=== PATIENT | male | born 1940 | race Caucasian/White ===

== ENCOUNTER 2016-06-17 17:16 | Emergency (ER) | payer MEDICARE, OTHER ==
[2016-06-17] MEDS ORDERED: Sodium Chloride 0.9% 10 ML Syringe FLUSH PRN (17:29)
[2016-06-17] MEDS ORDERED: Sodium Chloride 0.9% 2.5 ML Syringe FLUSH PRN (17:29)
--- NOTE | 2016-06-17 17:37 | EDM.PDOC ---
ED HISTORY OF PRESENT ILLNESS - General Chief Complaint: Respiratory Problem Stated Complaint: SHORTNESS OF BREATH Time Seen by Provider: 06/17/16 17:32 Source of Information: Reports: Patient History Limitations: Reports: No limitations - History of Present Illness INITIAL COMMENTS - FREE TEXT/NARRATIVE: HISTORY AND PHYSICAL: [75-year-old male presenting with shortness of breath ] History of Present Illness: [recently had his teeth removed and dentures placed he has difficulty breathing through his nose. He gets up in the middle of the night 3 or 4 times to the bathroom so he takes a deep breath through his mouth and his daughter and are worried about his shortness of breath. he denies any pain.] patient is a paced rhythm 2 open heart surgeries Review of Systems: As per history of present illness and below otherwise all systems reviewed and negative. Past medical history: As per history of present illness and as reviewed below otherwise noncontributory. Surgical history: As per history of present illness and as reviewed below otherwise noncontributory. Social history: No reported history of drug or alcohol abuse. Family history: As per history of present illness and as reviewed below otherwise noncontributory. Physical exam:alert and oriented gentleman during questions appropriately very neatly dressed HEENT: Atraumatic, normocehpalic, pupils reactive, negative for conjunctival pallor or scleral icterus, mucous membranes moist, throat clear, neck supple, nontender, trachea midline. Lungs: Clear to auscultation, breath sounds equal bilaterally, chest non tender. Heart: S1S2, regular, negative for clicks, rubs, or JVD. Abdomen: Soft, nondistended, nontender. Negative for masses or hepatossplenmegaly. Negative for costovertebral tenderness. Extremities: Atraumatic, negative for cords or calf pain. Neurovascular unremarkable. Neuro: Awake, alert, oriented. Cranial nerves II through XII unremarkable. Cerebellum unremarkable. Motor and sensory unremarkable throughout. Exam nonfocal. Diagnostics: CBC CMP troponin chestx ray] Therapeutics: [] Impression: shortness of breath with exertion] Plan: [home Take your time while you are moving Order for a carotid Doppler has been sent to radiology, please call in the morning [phone] schedule this appointment Reports from this will be sent to Dr. Elias Brown Followup with Dr. Brown next week ] Definitive disposition and diagnosis as appropriate pending reevaluation and review of above. Timing/Duration: Reports: Day(s): Severity: mild Location, General: Reports: chest Quality: Reports: Same as previous episode Improves with: Reports: None Worsens with: Reports: Movement Associated Symptoms (General): Reports: no other symptoms - Related Data Allergies/ADRs: Allergies Allergy/AdvReac Type Severity Reaction Status Date / Time Penicillins Allergy Rash Verified 06/17/16 17:22 Home Meds: Home Meds Ascorbate Calcium [Vitamin C] 500 mg PO DAILY 03/14/14 [History] Cholecalciferol (Vitamin D3) [Vitamin D3] 1,000 units PO DAILY 03/14/14 [History ] Fish Oil/[place]-3 Fatty Acids [Fish Oil 1,000 MG] 1,000 mg PO DAILY 03/14/14 [ History] Potassium Chloride 20 meq PO DAILY 03/14/14 [History] Vitamin B Complex 1 tab PO DAILY 03/14/14 [History] Vitamin E 400 units PO DAILY 03/14/14 [History] Allopurinol [Zyloprim] 100 mg PO DAILY 06/17/16 [History] Aspirin 81 mg PO DAILY 06/17/16 [History] Carvedilol 1 tab PO BID 06/17/16 [History] Losartan/Hydrochlorothiazide [Losartan-HCTZ 100-12.5 MG] 1 tab PO DAILY [History] Tamsulosin HCl 1 tab PO DAILY 06/17/16 [History] atorvaSTATin Calcium [Atorvastatin Calcium] 10 mg PO DAILY 06/17/16 [History] Past Medical History Cardiovascular History: Reports: High cholesterol, Hypertension, Pacemaker - Past Surgical History Cardiovascular Surgical History: Reports: Coronary artery bypass, Coronary artery stent, Pacer Social & Family History - Family History Family Medical History: Noncontributory - Tobacco Use Smoking Status *Q: Never Smoker Second Hand Smoke Exposure: No - Caffeine Use Caffeine Use: Reports: Coffee Caffeine Use Comment: 6 cup a daily - Alcohol Use Days Per Week of Alcohol Use: 0 - Recreational Drug Use Recreational Drug Use: No Drug Use in Last 12 Months: No ED ROS GENERAL - Review of Systems Review Of Systems: ROS reveals no pertinent complaints other than HPI. ED EXAM, GENERAL - Physical Exam Exam: See Below (see dictation) Course - Vital Signs Last Recorded V/S: Last Vital Signs Temp 36.8 C 06/17/16 17:23 Pulse 70 05/08/17 17:23 Resp 18 06/17/16 17:23 BP 145/69 H 06/17/16 17:23 Pulse Ox 96 06/17/16 17:23 - Orders/Labs/Meds Orders: Active Orders 24 hr Category Date Time Status EKG Documentation Completion [RC] STAT Care 06/17/16 17:29 Active Chest 1V Frontal [CR] Stat Exams 06/17/16 17:30 Taken Sodium Chloride 0.9% [Saline Flush] Med 06/17/16 17:29 Active 10 ml FLUSH ASDIRECTED PRN Sodium Chloride 0.9% [Saline Flush] Med 06/17/16 17:29 Active 2.5 ml FLUSH ASDIRECTED PRN Saline Lock Insert [OM.PC] Stat Oth 06/17/16 17:29 Ordered Medication Orders Sodium Chloride (Saline Flush) 10 ml FLUSH ASDIRECTED PRN PRN Reason: Keep Vein Open Sodium Chloride (Saline Flush) 2.5 ml FLUSH ASDIRECTED PRN PRN Reason: Keep Vein Open Labs: Laboratory Tests 06/17/16 06/17/16 06/17/16 Range/Units 17:50 17:50 17:50 WBC 8.40 (4.0-11.0) K/uL RBC 4.20 L (4.50-5.90) M/uL Hgb 13.0 (13.0-17.0) g/dL Hct 37.6 L (38.0-50.0) % MCV 89.5 (80.0-98.0) fL MCH 31.0 (27.0-32.0) pg MCHC 34.6 (31.0-37.0) g/dL RDW Std Deviation 43.1 (28.0-62.0) fl RDW Coeff of James 13 (11.0-15.0) % Plt Count 159 (150-400) K/uL MPV 9.60 (7.40-12.00) fL Neut % (Auto) 53.2 (48.0-80.0) % Lymph % (Auto) 31.7 (16.0-40.0) % Graves % (Auto) 12.0 (0.0-15.0) % Eos % (Auto) 2.7 (0.0-7.0) % Baso % (Auto) 0.4 (0.0-1.5) % Neut # (Auto) 4.5 (1.4-5.7) K/uL Lymph # (Auto) 2.7 H (0.6-2.4) K/uL Graves # (Auto) 1.0 H (0.0-0.8) K/uL Eos # (Auto) 0.2 (0.0-0.7) K/uL Baso # (Auto) 0.0 (0.0-0.1) K/uL Nucleated RBC % 0.0 /100WBC Nucleated RBCs # 0 K/uL Sodium 140 (136-146) mmol/L Potassium 3.8 (3.5-5.1) mmol/L Chloride 107 (98-110) mmol/L Carbon Dioxide 23 (21-31) mmol/L BUN 29 H (6.0-23.0) mg/dL Creatinine 1.7 H (0.6-1.5) mg/dL Est Cr Clr Drug Dosing 32.84 mL/min Estimated GFR (MDRD) 39.3 ml/min Glucose 103 (60-110) mg/dL Calcium 9.5 (8.8-10.8) mg/dL Total Bilirubin 0.6 (0.1-1.5) mg/dL AST 21 (5-40) IU/L ALT 21 (8-54) IU/L Alkaline Phosphatase 63 (40-150) Troponin I < 0.10 (0.0-0.29) NG/ML Total Protein 7.4 (6.0-8.0) g/dL Albumin 3.9 (3.4-4.8) g/dL Globulin 3.5 (2.0-3.5) g/dL Albumin/Globulin Ratio 1.1 L (1.3-2.8) Meds: Medications Generic Name Dose Route Start Last Admin Trade Name Freq PRN Reason Stop Dose Admin Sodium Chloride 10 ml 06/17/16 17:29 Saline Flush FLUSH ASDIRECTED PRN Keep Vein Open Sodium Chloride 2.5 ml 06/17/16 17:29 Saline Flush FLUSH ASDIRECTED PRN Keep Vein Open Departure - Departure Time of Disposition: 19:27 Disposition: Home, Self-Care 01 Condition: good Clinical Impression: Shortness of breath on exertion Forms: ED Department Discharge Additional Instructions: The following information is given to patients seen in the emergency department who are being discharged to home. This information is to outline your options for follow-up care. We provide all patients seen in our emergency department with a follow-up referral. The need for follow-up, as well as the timing and circumstances, are variable depending upon the specifics of your emergency department visit. If you don't have a primary care physician on staff, we will provide you with a referral. We always advise you to contact your personal physician following an emergency department visit to inform them of the circumstance of the visit and for follow-up with them and/or the need for any referrals to a consulting specialist. The emergency department will also refer you to a specialist when appropriate. This referral assures that you have the opportunity for followup care with a specialist. All of these measure are taken in an effort to provide you with optimal care, which includes your followup. Under all circumstances we always encourage you to contact your private physician who remains a resource for coordinating your care. When calling for followup care, please make the office aware that this follow-up is from your recent emergency room visit. If for any reason you are refused follow-up, please contact the [facility] emergency department at and asked to speak to the emergency department charge nurse. Follow up with Dr. Brown in one week call to schedule your appointment with radiology [phone] - My Orders Last 24 Hours: My Active Orders 06/17/16 17:29 EKG Documentation Completion [RC] STAT Sodium Chloride 0.9% [Saline Flush] 10 ml FLUSH ASDIRECTED PRN Sodium Chloride 0.9% [Saline Flush] 2.5 ml FLUSH ASDIRECTED PRN Saline Lock Insert [OM.PC] Stat 06/17/16 17:30 Chest 1V Frontal [CR] Stat - Assessment/Plan Last 24 Hours: My Active Orders 06/17/16 17:29 EKG Documentation Completion [RC] STAT Sodium Chloride 0.9% [Saline Flush] 10 ml FLUSH ASDIRECTED PRN Sodium Chloride 0.9% [Saline Flush] 2.5 ml FLUSH ASDIRECTED PRN Saline Lock Insert [OM.PC] Stat 06/17/16 17:30 Chest 1V Frontal [CR] Stat
[2016-06-17 19:43] VITALS: BP 174/81
--- NOTE | 2016-06-18 12:25 | CR ---
EXAM DATE: 06/17/16 PATIENT'S AGE: 75 Patient: OSIRIS MAHAJAN Facility: [place], [place] Site . Site : 1940 Study: XRay Chest [id number]/8/2017 6:39:06 PM Ordering Physician: Doctor Denson Final Report: INDICATION: Shortness of breath TECHNIQUE: Chest radiograph 1 view COMPARISON: 12/04/2011. FINDINGS: Interval placement of left subclavian pacemaker leads from prior study. Cardiac silhouette remains enlarged with stable heart and mediastinal contours. Costophrenic sulci remain clear. No pneumothorax. Lung markings unchanged. IMPRESSION: 1. Mild cardiomegaly status post prior median sternotomy, similar to prior study. No congestive heart failure pattern or other acute abnormality. Dictated by Hoang Villanueva MD @ 06/17/2016 7:20:23 PM Dictated by: Hoang Villanueva MD @ 06/17/2016 19:20:29 (Electronic Signature) Report Signed by Proxy. BRYANT
== END 2016-06-17 19:32 | disposition home or self-care (01) ==
LOC: MW.ED 17:16
DX: R06.02 Shortness of breath (principal); I10 Essential (primary) hypertension; E78.00 Pure hypercholesterolemia, unspecified; Z88.0 Allergy status to penicillin; Z95.1 Presence of aortocoronary bypass graft
CPT/HCPCS: 36415; 71010; 71010-26; 80053; 84484; 85025; 93005; 99283; 99285-25

== ENCOUNTER → 2016-06-19 | Outpatient (CLI) | payer MEDICARE, OTHER ==
--- NOTE | 2016-06-19 15:51 | US ---
EXAMINATION: Carotid US with scott scale and duplex imaging. HISTORY: Dizziness FINDINGS: Ultrasound examination of bilateral cervical carotid arteries was performed using scott scale and dup tomas imaging. Minimal scattered atheromatous plaque identified. Antegrade flow is noted within the vertebrals. These are the peak velocities in cm per second (systole), right and left respectively, by a comma: CCA (common carotid artery) - 92, 76 ICA (internal carotid artery) - 103, 88 ECA (External carotid artery) - 79, 65 ICA/CCA systolic ratio Right - 1.0 Left - 1.7 IMPRESSION: 1. Mild scattered atheromatous plaque without elevated velocities to suggest greater than 50% stenos is.
== END ==
LOC: MW.US 14:36
PROVIDERS: ATTEND Nurse Practitioner
DX: R42 Dizziness and giddiness (principal)
CPT/HCPCS: 93880; 93880-26

== ENCOUNTER 2016-08-14 11:36 | Emergency (ER) | payer MEDICARE, OTHER ==
--- NOTE | 2016-08-14 11:49 | EDM.PDOC ---
ED HPI GENERAL MEDICAL PROBLEM - General Chief Complaint: Chest Pain Stated Complaint: CHEST PAIN Time Seen by Provider: 08/14/16 11:45 - History of Present Illness INITIAL COMMENTS - FREE TEXT/NARRATIVE: HISTORY AND PHYSICAL: History of present illness: Patient 75-year-old male with history of cardiac pacemaker was sent here by another physician's office when he was therefore a visit with his he reached over to [place] and had a sharp several second episode of chest pain without associated shortness of breath palpitations diaphoresis nausea or vomiting he is asymptomatic on arrival here and states this literally lasted several seconds. Review of systems: As per history of present illness and below otherwise all systems reviewed and negative. Past medical history: As per history of present illness and as reviewed below otherwise noncontributory. Surgical history: As per history of present illness and as reviewed below otherwise noncontributory. Social history: No reported history of drug or alcohol abuse. Family history: As per history of present illness and as reviewed below otherwise noncontributory. Physical exam: HEENT: Atraumatic, normocephalic, pupils reactive, negative for conjunctival pallor or scleral icterus, mucous membranes moist, throat clear, neck supple, nontender, trachea midline. Lungs: Clear to auscultation, breath sounds equal bilaterally, chest nontender. Heart: S1S2, regular, negative for clicks, rubs, or JVD. Abdomen: Soft, nondistended, nontender. Negative for masses or hepatosplenomegaly. Negative for costovertebral tenderness. Pelvis: Stable nontender. Genitourinary: Deferred. Rectal: Deferred. Extremities: Atraumatic, negative for cords or calf pain. Neurovascular unremarkable. Neuro: Awake, alert, oriented. Cranial nerves II through XII unremarkable. Cerebellum unremarkable. Motor and sensory unremarkable throughout. Exam nonfocal. Diagnostics: EKG CBC CMP troponin chest x-ray Therapeutics: None Impression: #1 atypical chest pain #2 history of pacemaker Definitive disposition and diagnosis as appropriate pending reevaluation and review of above. - Related Data Allergies Allergy/AdvReac Type Severity Reaction Status Date / Time Penicillins Allergy Rash Verified 08/14/16 11:47 Home Meds: Home Meds Ascorbate Calcium [Vitamin C] 500 mg PO DAILY 03/14/14 [History] Cholecalciferol (Vitamin D3) [Vitamin D3] 1,000 units PO DAILY 03/14/14 [History ] Fish Oil/[place]-3 Fatty Acids [Fish Oil 1,000 MG] 1,000 mg PO DAILY 03/14/14 [ History] Potassium Chloride 20 meq PO DAILY 03/14/14 [History] Vitamin B Complex 1 tab PO DAILY 03/14/14 [History] Vitamin E 400 units PO DAILY 03/14/14 [History] Allopurinol [Zyloprim] 100 mg PO DAILY 06/17/16 [History] Aspirin 81 mg PO DAILY 06/17/16 [History] Carvedilol 1 tab PO BID 06/17/16 [History] Losartan/Hydrochlorothiazide [Losartan-HCTZ 100-12.5 MG] 1 tab PO DAILY [History] Tamsulosin HCl 1 tab PO DAILY 06/17/16 [History] atorvaSTATin Calcium [Atorvastatin Calcium] 10 mg PO DAILY 06/17/16 [History] Past Medical History HEENT History: Reports: Impaired Vision Other HEENT History: wears glasses Cardiovascular History: Reports: High Cholesterol, Hypertension, Pacemaker Musculoskeletal History: Reports: Arthritis - Past Surgical History Cardiovascular Surgical History: Reports: Coronary Artery Bypass, Coronary Artery Stent, Pacer Social & Family History - Family History Family Medical History: Noncontributory - Tobacco Use Smoking Status *Q: Never Smoker Second Hand Smoke Exposure: No - Caffeine Use Caffeine Use: Reports: Coffee Caffeine Use Comment: 6 cup a daily - Alcohol Use Days Per Week of Alcohol Use: 0 - Recreational Drug Use Recreational Drug Use: No Drug Use in Last 12 Months: No ED ROS GENERAL - Review of Systems Review Of Systems: ROS reveals no pertinent complaints other than HPI. ED EXAM, GENERAL - Physical Exam Exam: See Below (See dictation) Course - Vital Signs Last Recorded V/S: Last Vital Signs Temp 36.1 C 08/14/16 11:48 Pulse 71 08/14/16 11:48 Resp 18 08/14/16 11:48 BP 142/69 H 08/14/16 11:48 Pulse Ox 94 L 08/14/16 11:48 - Orders/Labs/Meds Orders: Active Orders 24 hr Category Date Time Status EKG Documentation Completion [RC] STAT Care 08/14/16 11:47 Active Chest 2V [CR] Stat Exams 08/14/16 11:47 Taken COMPREHENSIVE METABOLIC PN,CMP [CHEM] Stat Lab 08/14/16 12:09 Received Labs: Laboratory Tests 08/14/16 08/14/16 Range/Units 12:09 12:09 WBC 8.79 (4.0-11.0) K/uL RBC 4.47 L (4.50-5.90) M/uL Hgb 13.9 (13.0-17.0) g/dL Hct 40.2 (38.0-50.0) % MCV 89.9 (80.0-98.0) fL MCH 31.1 (27.0-32.0) pg MCHC 34.6 (31.0-37.0) g/dL RDW Std Deviation 42.0 (28.0-62.0) fl RDW Coeff of James 13 (11.0-15.0) % Plt Count 142 L (150-400) K/uL MPV 9.80 (7.40-12.00) fL Neut % (Auto) 54.3 (48.0-80.0) % Lymph % (Auto) 28.6 (16.0-40.0) % [place] % (Auto) 12.3 (0.0-15.0) % Eos % (Auto) 4.3 (0.0-7.0) % Baso % (Auto) 0.5 (0.0-1.5) % Neut # (Auto) 4.8 (1.4-5.7) K/uL Lymph # (Auto) 2.5 H (0.6-2.4) K/uL [place] # (Auto) 1.1 H (0.0-0.8) K/uL Eos # (Auto) 0.4 (0.0-0.7) K/uL Baso # (Auto) 0.0 (0.0-0.1) K/uL Nucleated RBC % 0.0 /100WBC Nucleated RBCs # 0 K/uL Troponin I < 0.10 (0.0-0.29) NG/ML Departure - Departure Time of Disposition: 12:39 Disposition: Home, Self-Care 01 Condition: Good Clinical Impression: Atypical chest pain - Discharge Information Forms: ED Department Discharge Additional Instructions: The following information is given to patients seen in the emergency department who are being discharged to home. This information is to outline your options for follow-up care. We provide all patients seen in our emergency department with a follow-up referral. The need for follow-up, as well as the timing and circumstances, are variable depending upon the specifics of your emergency department visit. If you don't have a primary care physician on staff, we will provide you with a referral. We always advise you to contact your personal physician following an emergency department visit to inform them of the circumstance of the visit and for follow-up with them and/or the need for any referrals to a consulting specialist. The emergency department will also refer you to a specialist when appropriate. This referral assures that you have the opportunity for followup care with a specialist. All of these measure are taken in an effort to provide you with optimal care, which includes your followup. Under all circumstances we always encourage you to contact your private physician who remains a resource for coordinating your care. When calling for followup care, please make the office aware that this follow-up is from your recent emergency room visit. If for any reason you are refused follow-up, please contact the [facility] emergency department at and asked to speak to the emergency department charge nurse. Tylenol as directed follow primary medical doctor 1-2 days continue current medications return as needed as discussed - My Orders Last 24 Hours: My Active Orders 08/14/16 11:47 EKG Documentation Completion [RC] STAT Chest 2V [CR] Stat 08/14/16 12:09 COMPREHENSIVE METABOLIC PN,CMP [CHEM] Stat - Assessment/Plan Last 24 Hours: My Active Orders 08/14/16 11:47 EKG Documentation Completion [RC] STAT Chest 2V [CR] Stat 08/14/16 12:09 COMPREHENSIVE METABOLIC PN,CMP [CHEM] Stat
[2016-08-14 15:27] VITALS: BP 154/86
--- NOTE | 2016-08-14 20:10 | CR ---
EXAM DATE: 08/14/16 PATIENT'S AGE: 75 Patient: OSIRIS MAHAJAN Facility: [place], [place] Site . Site : 1940 Study: XRay Chest [id number]/5/2017 12:24:59 PM Ordering Physician: Nae Cartwright Final Report: INDICATION: Chest and ear pain. COMPARISON: 06/17/2016. FINDINGS/IMPRESSION: No acute pulmonary infiltrates or other acute intrathoracic abnormalities are demonstrated. Unchanged minimal bibasilar scarring or atelectasis. Normal heart size and pulmonary vasculature. No pleural effusions. Unchanged cardiac pacemaker/AICD. S /P sternotomy, as before. Unremarkable osseous structures. Dictated by Naman Sparrow MD @ 08/14/2016 12:31:31 PM Dictated by: Naman Sparrow MD @ 08/14/2016 12:31:58 (Electronic Signature) Report Signed by Proxy. BRYANT
== END 2016-08-14 13:27 | disposition home or self-care (01) ==
LOC: MW.ED 11:36
DX: R07.89 Other chest pain (principal); I10 Essential (primary) hypertension; E78.00 Pure hypercholesterolemia, unspecified; M19.90 Unspecified osteoarthritis, unspecified site; Z95.1 Presence of aortocoronary bypass graft; Z95.5 Presence of coronary angioplasty implant and graft; Z95.0 Presence of cardiac pacemaker; Z79.82 Long term (current) use of aspirin; Z79.899 Other long term (current) drug therapy; Z88.0 Allergy status to penicillin
CPT/HCPCS: 36415; 71020; 71020-26; 80053; 84484; 85025; 93005; 99282; 99285-25

== ENCOUNTER 2018-08-11 09:26 | Observation (INO) | payer MEDICARE, OTHER ==
[2018-08-11] MEDS ORDERED: Sodium Chloride 0.9% 10 ML Syringe FLUSH PRN (09:39)
[2018-08-11] MEDS ORDERED: Sodium Chloride 0.9% 2.5 ML Syringe FLUSH PRN (09:39)
[2018-08-11] MEDS ORDERED: Sodium Chloride 0.9% 500 ML IV SCH (09:45)
--- NOTE | 2018-08-11 09:53 | CT ---
EXAMINATION: Non contrast CT head. Coronal and sagittal reformats. HISTORY: Pain. COMPARISON: 11/06/2015. FINDINGS: No evidence of intra or extra axial hemorrhage, mass, midline shift, hydrocephalus or edema. There is mild generalized atrophy and moderate periventricular and subcortical white matter hypodensities. Tiny focus of encephalomalacia within the right occipital region. No hypoattenuation changes in the major vascular territories to suggest acute infarct. No abnormal intracranial calcifications are detected. Mild vascular calcifications. Paranasal sinuses and mastoid air cells are well aerated without substantial findings. The pituitary fossa appears unremarkable. Orbits and globes are symmetric. The calvarium is intact. No evidence of skull fracture. IMPRESSION: 1. No acute intracranial findings. 2. Mild generalized atrophy and moderate small vessel ischemic changes. The findings were called to the ER at 9:50 AM.
[2018-08-11] MEDS ORDERED: Aspirin 325 MG Tab PO ONE (09:55)
--- NOTE | 2018-08-11 09:55 | EDM.PDOC ---
ED HPI GENERAL MEDICAL PROBLEM - General Chief Complaint: Neuro Symptoms/Deficits Stated Complaint: CONFUSION Time Seen by Provider: 08/11/18 09:29 - History of Present Illness INITIAL COMMENTS - FREE TEXT/NARRATIVE: HISTORY AND PHYSICAL: History of present illness: The patient is a 77-year-old male who presents with after having acute neurologic changes that started at 9 AM, approximately 50 minutes prior to this dictation. The says that he had a completely normal morning and was acting appropriately and they were taking the car and for some servicing when he was driving the vehicle and she noticed that he was having issues controlling the gas pedal and the speed of the car and he was also wavering in the road and not staying in the [place]. When the asked him what was wrong he said to her that he was having difficulty focusing but she did not notice that his speech was slurred or altered but seemed very slowed and he was very quiet. He did complain of some pain at the right side of his neck which according to him and her has been ongoing since February and it was not new or different. She asked the patient to pull the car over and she went around the car and proceeded to try to get him out of the car but he was unable to stand. A friend who was in the area help to get him back into the car on the passenger side and at that point noticed that he was on the cell phone talking and although his speech was slowed he seemed to be speaking clearly and could understand what he was saying. The patient was brought in here and a stroke code was called in light of his symptoms. According to the computer he has a history of a TIA as well as hypertension and hypercholesterolemia. The patient was quickly evaluated by triage and brought quickly to CT scan and on my evaluation on his return from CT he is speaking clearly and easily is alert and oriented and has no focal deficits grossly. He says he has no complaints of any pain and he is not sure why exactly he is here in the ED but does admit that he did have an abnormal episode earlier. He says he has been eating and drinking normally but does have loose stools. He has no abdominal pain no nausea no vomiting no headache and no midline neck or back pain currently. He again reiterates that the pain at the left back radiates to the right side and has been ongoing since February and is not new or different. He denies any recent trauma. His initial blood pressure was noted and an IV was started by the nurse in the CT scan area and IV fluids were started immediately upon his return. Review of systems: As per history of present illness and below otherwise all systems reviewed and negative. Past medical history: As per history of present illness and as reviewed below otherwise noncontributory. Surgical history: As per history of present illness and as reviewed below otherwise noncontributory. Social history: No reported history of drug or alcohol abuse. Family history: As per history of present illness and as reviewed below otherwise noncontributory. Physical exam: General: Well-developed well-nourished man who is nontoxic and speaking clearly on my evaluation he is laughing and interactive and is nontoxic. Vital signs are noted by me. HEENT: Atraumatic, normocephalic, pupils reactive, negative for conjunctival pallor or scleral icterus, mucous membranes moist, throat clear, neck supple, nontender, trachea midline. EOMs are intact, there is no evidence of any facial swelling or facial droop. There are no midline step-offs in his defects of the cervical spine and no soft tissue injury to the neck posteriorly is appreciated. Lungs: Clear to auscultation, breath sounds equal bilaterally, chest nontender. no wheezing stridor or work of breathing Heart: S1S2, regular rate and rhythm and there is a soft systolic ejection murmur appreciated at the left sternal border Abdomen: Soft, nondistended, nontender. Negative for masses or hepatosplenomegaly. Negative for costovertebral tenderness. Pelvis: Stable nontender. Genitourinary: Deferred. Rectal: Deferred. Extremities: Atraumatic, negative for cords or calf pain. Neurovascular unremarkable. no defects deformities and full range of motion. There is no pedal edema Neuro: Awake, alert, oriented. Cranial nerves II through XII unremarkable. Cerebellum unremarkable. Motor and sensory unremarkable throughout. Exam nonfocal. patient has good costume draper 5/5 bilaterally and dorsi and plantar flexion is intact 5/5 inclusive of the great toe. She can invert any vertigo his feet and he has no focal drift appreciated on brief exam in the triage room. Diagnostics: EKG CBC CMP INR troponin TSH UA with reflex CT scan of the head chest x-ray lactic acid NIHSS Therapeutics: IV O2 monitor IV fluids aspirin NIHSS is 0 according to nursing and patient is very chatty and talkative now in the ED. tells me he has back at his baseline. His blood pressure is systolic 102 after a bolus and will give him another second small fluid bolus. We're continuing to monitor his workup This case was called as a stroke code due to the presenting symptoms and the timeframe. By the time I evaluated the patient and the stroke scale was performed he was completely asymptomatic. His symptoms had resolved within less than one hour. He currently remains asymptomatic and as his symptoms have completely resolved I do not feel that TPA is indicated. We will admit the patient here to our hospital and involve neurology as needed and indicated per our conversation with the hospitalist BUN and creatinine today is 38/2.7 and this was compared to blood work done last August which showed a BUN of 26 and a creatinine of 1.8. These tests may indicate some slight dehydration which would correlate with his mild hypotension without symptomatology on arrival. He is continuing to maintain his baseline neuro status and I will call and for admission Dr. Benitez was contacted at 11:40 AM and accepts the patient for admission. All testing results were discussed with the patient and family at bedside and the patient is agreeable for observation Impression: Episode of confusion, motor weakness and inability to stand, resolved, TIA Definitive disposition and diagnosis as appropriate pending reevaluation and review of above. - Related Data Allergies Allergy/AdvReac Type Severity Reaction Status Date / Time atenolol Allergy Cough Verified 08/11/18 10:31 lisinopril Allergy Cough Verified 08/11/18 10:31 meperidine [From Demerol] Allergy Other Verified 08/11/18 10:31 nickel Allergy Hives Verified 08/11/18 10:31 Penicillins Allergy Rash Verified 08/11/18 09:49 Home Meds: Home Meds Allopurinol [Zyloprim] 100 mg PO DAILY 06/17/16 [History] Aspirin 81 mg PO DAILY 06/17/16 [History] Carvedilol 12.5 mg PO BID 06/17/16 [History] Losartan/Hydrochlorothiazide [Losartan-HCTZ 100-12.5 MG] 1 tab PO DAILY [History] Donepezil [Aricept] 10 mg PO BEDTIME 08/11/18 [History] tiZANidine [Zanaflex] 4 mg PO TID 08/11/18 [History] Past Medical History HEENT History: Reports: Impaired Vision Other HEENT History: wears glasses Cardiovascular History: Reports: High Cholesterol, Hypertension, Pacemaker Musculoskeletal History: Reports: Arthritis - Past Surgical History Cardiovascular Surgical History: Reports: Coronary Artery Bypass, Coronary Artery Stent, Pacer Social & Family History - Family History Family Medical History: Noncontributory - Caffeine Use Caffeine Use: Reports: Coffee Caffeine Use Comment: 6 cup a daily ED ROS GENERAL - Review of Systems Review Of Systems: ROS reveals no pertinent complaints other than HPI. ED EXAM, GENERAL - Physical Exam Exam: See Below (See dictation) Course - Vital Signs Last Recorded V/S: Last Vital Signs Temp 36.0 C 08/11/18 09:46 Pulse 65 08/11/18 09:46 Resp 18 08/11/18 09:46 BP 86/55 L 08/11/18 09:46 Pulse Ox 95 08/11/18 09:46 - Orders/Labs/Meds Orders: Active Orders 24 hr Category Date Time Status Patient Status [ADT] Stat ADT 08/11/18 11:40 Ordered Blood Glucose Check, Bedside [RC] ONETIME Care 08/11/18 09:39 Active Cardiac Monitoring [RC] . DIRECTED Care 08/11/18 09:39 Active Communication Order [RC] STAT Care 08/11/18 09:40 Active EKG Documentation Completion [RC] STAT Care 08/11/18 09:39 Active Oxygen Therapy, ED [RC] ASDIRECTED Care 08/11/18 09:39 Active Pulse Oximetry [RC] ASDIRECTED Care 08/11/18 09:39 Active UA RFX BRANDYN AND CULT IF INDIC [URIN] Stat Lab 08/11/18 09:40 Ordered Sodium Chloride 0.9% [Normal Saline] 500 ml Med 08/11/18 09:45 Active IV STAT Sodium Chloride 0.9% [Saline Flush] Med 08/11/18 09:39 Active 10 ml FLUSH ASDIRECTED PRN Sodium Chloride 0.9% [Saline Flush] Med 08/11/18 09:39 Active 2.5 ml FLUSH ASDIRECTED PRN Saline Lock Insert [OM.PC] Stat Oth 08/11/18 09:39 Ordered Medication Orders Sodium Chloride (Normal Saline) 500 mls @ 999 mls/hr IV STAT EMILEE Last Admin: 08/11/18 09:57 Dose: 999 mls/hr Sodium Chloride (Saline Flush) 10 ml FLUSH ASDIRECTED PRN PRN Reason: Keep Vein Open Sodium Chloride (Saline Flush) 2.5 ml FLUSH ASDIRECTED PRN PRN Reason: Keep Vein Open Labs: Laboratory Tests 08/11/18 08/11/18 08/11/18 Range/Units 09:31 09:31 09:31 WBC 8.78 (4.0-11.0) K/uL RBC 4.37 L (4.50-5.90) M/uL Hgb 13.2 (13.0-17.0) g/dL Hct 39.6 (38.0-50.0) % MCV 90.6 (80.0-98.0) fL MCH 30.2 (27.0-32.0) pg MCHC 33.3 (31.0-37.0) g/dL RDW Std Deviation 44.3 (28.0-62.0) fl RDW Coeff of James 14 (11.0-15.0) % Plt Count 135 L (150-400) K/uL MPV 10.30 (7.40-12.00) fL Neut % (Auto) 60.5 (48.0-80.0) % Lymph % (Auto) 21.2 (16.0-40.0) % [place] % (Auto) 10.7 (0.0-15.0) % Eos % (Auto) 6.8 (0.0-7.0) % Baso % (Auto) 0.8 (0.0-1.5) % Neut # (Auto) 5.3 (1.4-5.7) K/uL Lymph # (Auto) 1.9 (0.6-2.4) K/uL [place] # (Auto) 0.9 H (0.0-0.8) K/uL Eos # (Auto) 0.6 (0.0-0.7) K/uL Baso # (Auto) 0.1 (0.0-0.1) K/uL Nucleated RBC % 0.0 /100WBC Nucleated RBCs # 0 K/uL INR 0.98 Lactate (0.20-2.00) mmol/L Sodium 139 (136-148) mmol/L Potassium 3.6 (3.5-5.1) mmol/L Chloride 106 (98-107) mmol/L Carbon Dioxide 22.4 (21.0-32.0) mmol/L BUN 38 H (7.0-18.0) mg/dL Creatinine 2.7 H (0.8-1.3) mg/dL Est Cr Clr Drug Dosing 24.35 mL/min Estimated GFR (MDRD) 22.9 ml/min Glucose 170 H (74-106) mg/dL Calcium 8.7 (8.5-10.1) mg/dL Total Bilirubin 0.5 (0.2-1.0) mg/dL AST 17 (15-37) IU/L ALT 23 (14-63) IU/L Alkaline Phosphatase 93 (46-116) U/L Troponin I < 0.050 (0.000-0.056) ng/mL Total Protein 7.4 (6.4-8.2) g/dL Albumin 3.4 (3.4-5.0) g/dL Globulin 4.0 (2.6-4.0) g/dL Albumin/Globulin Ratio 0.9 (0.9-1.6) TSH 3rd Generation 2.34 (0.36-3.74) uIU/mL 08/11/18 Range/Units 10:10 WBC (4.0-11.0) K/uL RBC (4.50-5.90) M/uL Hgb (13.0-17.0) g/dL Hct (38.0-50.0) % MCV (80.0-98.0) fL MCH (27.0-32.0) pg MCHC (31.0-37.0) g/dL RDW Std Deviation (28.0-62.0) fl RDW Coeff of James (11.0-15.0) % Plt Count (150-400) K/uL MPV (7.40-12.00) fL Neut % (Auto) (48.0-80.0) % Lymph % (Auto) (16.0-40.0) % [place] % (Auto) (0.0-15.0) % Eos % (Auto) (0.0-7.0) % Baso % (Auto) (0.0-1.5) % Neut # (Auto) (1.4-5.7) K/uL Lymph # (Auto) (0.6-2.4) K/uL [place] # (Auto) (0.0-0.8) K/uL Eos # (Auto) (0.0-0.7) K/uL Baso # (Auto) (0.0-0.1) K/uL Nucleated RBC % /100WBC Nucleated RBCs # K/uL INR Lactate 1.1 (0.20-2.00) mmol/L Sodium (136-148) mmol/L Potassium (3.5-5.1) mmol/L Chloride (98-107) mmol/L Carbon Dioxide (21.0-32.0) mmol/L BUN (7.0-18.0) mg/dL Creatinine (0.8-1.3) mg/dL Est Cr Clr Drug Dosing mL/min Estimated GFR (MDRD) ml/min Glucose (74-106) mg/dL Calcium (8.5-10.1) mg/dL Total Bilirubin (0.2-1.0) mg/dL AST (15-37) IU/L ALT (14-63) IU/L Alkaline Phosphatase (46-116) U/L Troponin I (0.000-0.056) ng/mL Total Protein (6.4-8.2) g/dL Albumin (3.4-5.0) g/dL Globulin (2.6-4.0) g/dL Albumin/Globulin Ratio (0.9-1.6) TSH 3rd Generation (0.36-3.74) uIU/mL Meds: Medications Generic Name Dose Route Start Last Admin Trade Name Freq PRN Reason Stop Dose Admin Sodium Chloride 500 mls @ 999 mls/hr 08/11/18 09:45 08/11/18 09:57 Normal Saline IV 999 mls/hr STAT EMILEE Administration Sodium Chloride 10 ml 08/11/18 09:39 Saline Flush FLUSH ASDIRECTED PRN Keep Vein Open Sodium Chloride 2.5 ml 08/11/18 09:39 Saline Flush FLUSH ASDIRECTED PRN Keep Vein Open Discontinued Medications Generic Name Dose Route Start Last Admin Trade Name Freq PRN Reason Stop Dose Admin Aspirin 325 mg 08/11/18 09:55 08/11/18 10:34 Aspirin PO 08/11/18 09:56 325 mg ONETIME ONE Administration Departure - Departure Time of Disposition: 11:41 Disposition: Refer to Observation Condition: Good Clinical Impression: TIA (transient ischemic attack) - Discharge Information Referrals: Elias Brown MD [Primary Care Provider] - Forms: ED Department Discharge - My Orders Last 24 Hours: My Active Orders 08/11/18 09:39 Blood Glucose Check, Bedside [RC] ONETIME Cardiac Monitoring [RC] . DIRECTED EKG Documentation Completion [RC] STAT Oxygen Therapy, ED [RC] ASDIRECTED Pulse Oximetry [RC] ASDIRECTED Sodium Chloride 0.9% [Saline Flush] 10 ml FLUSH ASDIRECTED PRN Sodium Chloride 0.9% [Saline Flush] 2.5 ml FLUSH ASDIRECTED PRN Saline Lock Insert [OM.PC] Stat 08/11/18 09:40 Communication Order [RC] STAT UA RFX BRANDYN AND CULT IF INDIC [URIN] Stat 08/11/18 09:45 Sodium Chloride 0.9% [Normal Saline] 500 ml IV STAT 08/11/18 11:40 Patient Status [ADT] Stat - Assessment/Plan Last 24 Hours: My Active Orders 08/11/18 09:39 Blood Glucose Check, Bedside [RC] ONETIME Cardiac Monitoring [RC] . DIRECTED EKG Documentation Completion [RC] STAT Oxygen Therapy, ED [RC] ASDIRECTED Pulse Oximetry [RC] ASDIRECTED Sodium Chloride 0.9% [Saline Flush] 10 ml FLUSH ASDIRECTED PRN Sodium Chloride 0.9% [Saline Flush] 2.5 ml FLUSH ASDIRECTED PRN Saline Lock Insert [OM.PC] Stat 08/11/18 09:40 Communication Order [RC] STAT UA RFX BRANDYN AND CULT IF INDIC [URIN] Stat 08/11/18 09:45 Sodium Chloride 0.9% [Normal Saline] 500 ml IV STAT 08/11/18 11:40 Patient Status [ADT] Stat
--- NOTE | 2018-08-11 10:23 | CR ---
EXAMINATION: Portable chest radiograph. HISTORY: Shortness of breath. Comparison: 08/14/2016, 06/17/2016. FINDINGS: The trachea is midline. The cardiomediastinal silhouette is within normal limits. No pulmonary infiltrates, effusions or pneumothorax. Left-sided ICD is noted. Median sternotomy wires are present. Mild bibasilar atelectasis. Osseous structures appear unremarkable. IMPRESSION: No acute cardiopulmonary process.
[2018-08-11 11:11] LABS: CHLORIDE,CL 106 mmol/L (98-107); SODIUM,NA 139 mmol/L (136-148)
[2018-08-11] MEDS ORDERED: Acetaminophen 325 MG Tab PO PRN (12:39)
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
[2018-08-11 14:28] LABS: HEMOGLOBIN A1C 6.7 % (4.5-6.2)
[2018-08-11] MEDS: Sodium Chloride 0.9% 1,000 ML IV SCH (16:12)
--- NOTE | 2018-08-11 16:39 | US ---
EXAMINATION: Carotid US with scott scale and duplex imaging. HISTORY: TIA FINDINGS: Ultrasound examination of bilateral cervical carotid arteries was performed using scott scale and duplex imaging. Moderate scattered atheromatous changes within the carotid arteries, right greater than left. Antegrade flow noted within the vertebrals.. These are the peak velocities in cm per second (systole), right and left respectively, by a comma: CCA (common carotid artery) - 75, 83 ICA (internal carotid artery) - 235, 122 ECA (External carotid artery) - 131, 82 ICA/CCA systolic ratio Right - 3.1 Left - 1.5 IMPRESSION: 1. There is between 70 and 99% stenosis within the right internal carotid artery secondary to elevated velocities. 2. There is less than 50% stenosis within the left internal carotid artery secondary to velocities.
[2018-08-11] MEDS ORDERED: CARVEDILOL 12.5 MG PO SCH (17:00)
[2018-08-11] MEDS ORDERED: atorvaSTATin 40 MG Tab PO SCH (21:00)
[2018-08-11] MEDS ORDERED: Donepezil 10 MG Tab PO SCH (21:00)
[2018-08-12] MEDS: Sodium Chloride 0.9% 1,000 ML IV SCH (04:10)
[2018-08-12 07:36] VITALS: BP 158/82
[2018-08-12] MEDS ORDERED: HCT PO SCH (09:00)
[2018-08-12] MEDS ORDERED: LOSARTAN PO SCH (09:00)
[2018-08-12] MEDS ORDERED: Aspirin 81 MG Tab.Chew PO SCH (09:00)
[2018-08-12] MEDS ORDERED: Losartan 50 MG Tab PO SCH (09:00)
== END 2018-08-12 11:00 | disposition home or self-care (01) ==
LOC: MW.ED 09:26 → MW.MS 11:40 → UNDOADMOB 12:34 → MW.MS 12:34
PROVIDERS: ADMIT Internal Medicine; ATTEND Internal Medicine
DX: G45.9 Transient cerebral ischemic attack, unspecified (principal); E86.0 Dehydration; I95.9 Hypotension, unspecified; E78.00 Pure hypercholesterolemia, unspecified; M19.90 Unspecified osteoarthritis, unspecified site; I10 Essential (primary) hypertension; Z87.891 Personal history of nicotine dependence; Z88.5 Allergy status to narcotic agent; Z88.0 Allergy status to penicillin; Z88.8 Allergy status to other drugs, medicaments and biological substances; Z91.09 Other allergy status, other than to drugs and biological substances; Z79.82 Long term (current) use of aspirin; Z79.899 Other long term (current) drug therapy; Z95.0 Presence of cardiac pacemaker
CPT/HCPCS: 36415; 70450; 71045; 80048; 80053; 80061; 81003; 82962; 83036; 83605; 84443; 84484; 85025; 85610; 93005; 93306; 93880; 96360; 99285; A9270; G0378; J7040

== ENCOUNTER 2019-09-08 10:22 | Emergency (ER) | payer MEDICARE, OTHER ==
[2019-09-08 10:35] VITALS: BP 117/57; PULSE 69
[2019-09-08] MEDS ORDERED: Sodium Chloride 0.9% 2.5 ML Syringe FLUSH PRN (10:53)
[2019-09-08] MEDS ORDERED: Sodium Chloride 0.9% 10 ML Syringe FLUSH PRN (10:53)
--- NOTE | 2019-09-08 11:38 | EDM.PDOC ---
ED HPI GENERAL MEDICAL PROBLEM - General Chief Complaint: General Stated Complaint: CAROTID ARTERY COMPLAINT Time Seen by Provider: 09/08/19 10:28 Source of Information: Reports: Patient, Old Records History Limitations: Reports: No Limitations - History of Present Illness INITIAL COMMENTS - FREE TEXT/NARRATIVE: 78-year-old male with past medical history of severe peripheral arterial disease status post carotid endarterectomy, CABG, peripheral arterial stenting, TIAs, hypertension, hyperlipidemia presenting with fatigue. Patient reports a 4-day history of generalized fatigue and feeling rundown and tired. He states that this is unusual for him. He states that it is hard for him to keep his eyes open because he keeps falling asleep when nobody talks to him. He also states that it is hard to read which he really enjoys doing because he is frequently falling asleep in his chair. Denies any recent illness, fever, or new pain. Denies any complaints of pain at this point. His spouse was concerned that he may need to have his left carotid artery imaged for a stenosis or occlusion so she recommended he come to the emergency department to be evaluated. The patient denies any headache, neck pain, visual disturbance, dysarthria, dysphasia, facial or extremity numbness or weakness, neck pain, gait instability, or impairment incoordination. No recent medication changes or illness. No complaints at this point other than feeling fatigued. No recent vomiting, diarrhea, rectal bleeding, or any other hemorrhage. - Related Data Allergies Allergy/AdvReac Type Severity Reaction Status Date / Time Penicillins Allergy Severe Rash Verified 08/11/18 13:38 atenolol Allergy Cough Verified 08/11/18 10:31 lisinopril Allergy Cough Verified 08/11/18 10:31 meperidine [From Demerol] Allergy Other Verified 08/11/18 10:31 nickel Allergy Hives Verified 08/11/18 10:31 Home Meds: Home Meds Allopurinol [Zyloprim] 100 mg PO DAILY 06/17/16 [History] Aspirin 81 mg PO 06/17/16 [History] Losartan/Hydrochlorothiazide [Losartan-HCTZ 100-12.5 MG] 1 tab PO DAILY 06/17/16 [History] carvediloL [Carvedilol] 12.5 mg PO BID 06/17/16 [History] Donepezil [Aricept] 10 mg PO BEDTIME 08/11/18 [History] tiZANidine [Zanaflex] 4 mg PO TID 08/11/18 [History] atorvaSTATin [Lipitor] 40 mg PO BEDTIME #30 tab 08/12/18 [Rx] Past Medical History HEENT History: Reports: Impaired Vision Other HEENT History: wears glasses, hard of hearing Cardiovascular History: Reports: High Cholesterol, Hypertension, Pacemaker Respiratory History: Reports: None Gastrointestinal History: Reports: None Genitourinary History: Reports: None Musculoskeletal History: Reports: Arthritis Neurological History: Reports: TIA, Other (See Below) Other Neuro History: 3yrs ago pt stated he possible TIA as per Dr. Torres Psychiatric History: Reports: None Endocrine/Metabolic History: Reports: None Hematologic History: Reports: None Immunologic History: Reports: None Oncologic (Cancer) History: Reports: None Dermatologic History: Reports: Psoriasis Other Dermatologic History: at bilateral lower leg - Infectious Disease History Infectious Disease History: Reports: Measles, Mumps - Past Surgical History Head Surgeries/Procedures: Reports: None HEENT Surgical History: Reports: Other (See Below) Other HEENT Surgeries/Procedures: teeth removed Cardiovascular Surgical History: Reports: Coronary Artery Bypass, Coronary Artery Stent, Pacer Respiratory Surgical History: Reports: None GI Surgical History: Reports: None Male Surgical History: Reports: None Endocrine Surgical History: Reports: None Neurological Surgical History: Reports: None Musculoskeletal Surgical History: Reports: Other (See Below) Other Musculoskeletal Surgeries/Procedures:: Spinal surgery Oncologic Surgical History: Reports: None Dermatological Surgical History: Reports: None Social & Family History - Family History Family Medical History: Noncontributory - Tobacco Use Smoking Status *Q: Former Smoker Used Tobacco, but Quit: Yes Month/Year Tobacco Last Used: 10 years ago Second Hand Smoke Exposure: No - Caffeine Use Caffeine Use: Reports: Coffee Caffeine Use Comment: 6 cup a daily - Recreational Drug Use Recreational Drug Use: No ED ROS GENERAL - Review of Systems Review Of Systems: See Below Constitutional: Reports: Fatigue. Denies: Fever, Chills HEENT: Denies: Throat Pain Respiratory: Denies: Shortness of Breath Cardiovascular: Denies: Chest Pain, Lightheadedness, Syncope Endocrine: Reports: Fatigue GI/Abdominal: Denies: Abdominal Pain, Black Stool, Bloody Stool, Diarrhea, Difficulty Swallowing, Hematemesis, Nausea, Vomiting : Denies: Dysuria, Flank Pain, Hematuria Musculoskeletal: Denies: Neck Pain, Shoulder Pain, Arm Pain, Back Pain, Hand Pain, Leg Pain Skin: Denies: Rash, Wound Neurological: Denies: Confusion, Dizziness, Headache, Numbness, Paresthesia, Seizure, Tingling, Trouble Speaking, Difficulty Walking, Weakness, Change in Speech, Gait Disturbance Psychiatric: Reports: No Symptoms ED EXAM, GENERAL - Physical Exam Exam: See Below Free Text/Narrative:: Vital signs reviewed. Nursing notes reviewed. Constitutional: Awake, alert, non-distressed. Head: Normocephalic, atraumatic. Eyes: EOMI, conjunctiva normal, no discharge, no scleral icterus. Pupils 3 mm and reactive bilaterally Ears, Nose, Throat: External ears and nose normal, moist oral mucosa. Cardiovascular: 2+ radial pulses bilaterally, capillary refill less than 2 seconds. RRR no MRG Pulmonary: normal work of breathing, no accessory muscle use. CTA BL Abdomen/GI: Soft, nontender, nondistended, no guarding or rigidity, no masses. Musculoskeletal: No deformities. Integumentary: Appropriate color for ethnicity, warm, dry, no pallor or jaundice, no rash. Neurologic: Awake, alert, and oriented x3. Cranial nerves II through XII intact. No facial droop or dysarthria. Supple neck with normal range of motion. No pronator drift. Normal [id number] and [id number]. No dysdiadochokinesia. 5/5 strength in all extremities. Sensation intact to light touch x4. Negative Romberg. Normal gait. Normal visual meeks, no field cuts. Able to sit, stand, and ambulate without assistance. Psychiatric: Appropriate mood and affect, normal thought process. Course - Vital Signs Text/Narrative:: 78-year-old male with generalized fatigue. Patient hemodynamically stable, afebrile, well-appearing, looks nontoxic. Differential diagnosis includes but is not limited to: Anemia, electrolyte disturbance, volume depletion, GI bleed, hemorrhage, pneumonia, UTI, sepsis, hypothyroidism, medication side effect, etc. Complaining of generalized fatigue. Laboratory work-up was largely unrevealing. Normal hemoglobin and white blood cell count, mild thrombocytopenia. Electrolytes show stable renal insufficiency with creatinine of 2.1 which is about baseline, mild hyperglycemia. Troponin testing negative. Twelve-lead EKG shows a paced rhythm but no evidence of acute ischemia. Patient has never experienced chest discomfort or shortness of breath. Neurologically intact, no neurologic deficits to suggest a CVA or TIA. Patient has never had a headache or neck pain. Low suspicion for thyroid disease, patient does not clinically appear to be volume depleted. No history of recent fever, illness, vomiting, or diarrhea. At this point the cause of his generalized fatigue is not entirely clear. No evidence of an acute emergency medical condition or acute process that would require hospitalization or transfer. We will encourage the patient to follow-up with his primary medical doctor in the next 1 to 2 weeks for reevaluation. Strict ED return precautions were provided. All questions answered prior to discharge. Patient did not want to wait for his discharge paperwork, which I did offer to him. He understands that he should follow-up with his primary doctor. Last Recorded V/S: Last Vital Signs Temp 36.3 C 09/08/19 10:28 Pulse 69 09/08/19 10:28 Resp 20 09/08/19 10:28 BP 117/57 L 09/08/19 10:28 Pulse Ox 96 09/08/19 10:28 - Orders/Labs/Meds Orders: Active Orders 24 hr Category Date Time Status Saline Lock Insert [OM.PC] Stat Oth 09/08/19 10:53 Ordered Labs: Laboratory Tests 09/08/19 09/08/19 09/08/19 Range/Units 11:25 11:25 11:25 WBC 7.81 (4.0-11.0) K/uL RBC 4.31 L (4.50-5.90) M/uL Hgb 13.0 (13.0-17.0) g/dL Hct 39.5 (38.0-50.0) % MCV 91.6 (80.0-98.0) fL MCH 30.2 (27.0-32.0) pg MCHC 32.9 (31.0-37.0) g/dL RDW Std Deviation 43.5 (28.0-62.0) fl RDW Coeff of James 13 (11.0-15.0) % Plt Count 125 L (150-400) K/uL MPV 9.50 (7.40-12.00) fL Neut % (Auto) 55.6 (48.0-80.0) % Lymph % (Auto) 24.8 (16.0-40.0) % Levy % (Auto) 12.8 (0.0-15.0) % Eos % (Auto) 6.3 (0.0-7.0) % Baso % (Auto) 0.5 (0.0-1.5) % Neut # (Auto) 4.3 (1.4-5.7) K/uL Lymph # (Auto) 1.9 (0.6-2.4) K/uL Levy # (Auto) 1.0 H (0.0-0.8) K/uL Eos # (Auto) 0.5 (0.0-0.7) K/uL Baso # (Auto) 0.0 (0.0-0.1) K/uL Nucleated RBC % 0.0 /100WBC Nucleated RBCs # 0 K/uL INR 1.02 Sodium 140 (136-148) mmol/L Potassium 4.3 (3.5-5.1) mmol/L Chloride 107 (98-107) mmol/L Carbon Dioxide 23.1 (21.0-32.0) mmol/L BUN 33 H (7.0-18.0) mg/dL Creatinine 2.1 H (0.8-1.3) mg/dL Est Cr Clr Drug Dosing 25.32 mL/min Estimated GFR (MDRD) 30.5 ml/min Glucose 124 H (74-106) mg/dL Calcium 8.2 L (8.5-10.1) mg/dL Total Bilirubin 0.5 (0.2-1.0) mg/dL AST 22 (15-37) IU/L ALT 27 (14-63) IU/L Alkaline Phosphatase 87 (46-116) U/L Troponin I < 0.050 (0.000-0.056) ng/mL Total Protein 7.3 (6.4-8.2) g/dL Albumin 3.4 (3.4-5.0) g/dL Globulin 3.9 (2.6-4.0) g/dL Albumin/Globulin Ratio 0.9 (0.9-1.6) Meds: Medications Discontinued Medications Generic Name Dose Route Start Last Admin Trade Name Freq PRN Reason Stop Dose Admin Sodium Chloride 2.5 ml 09/08/19 10:53 Saline Flush FLUSH ASDIRECTED PRN Keep Vein Open Sodium Chloride 10 ml 09/08/19 10:53 Saline Flush FLUSH ASDIRECTED PRN Keep Vein Open Departure - Departure Time of Disposition: 13:00 Disposition: Home, Self-Care 01 Condition: Good Clinical Impression: Fatigue Qualifiers: Fatigue type: unspecified Qualified Code(s): R53.83 - Other fatigue - Discharge Information Referrals: Elias Brown MD [Primary Care Provider] - 1 Week Forms: ED Department Discharge Additional Instructions: The following information is given to patients seen in the emergency department who are being discharged. This information is to outline your options for follow -up care. We provide all patients seen in our emergency department with a follow-up referral. The need for follow-up, as well as the timing and circumstances, are variable depending upon the specifics of your emergency department visit. If you don't have a primary care physician on staff, we will provide you with a referral. We always advise you to contact your personal physician following an emergency department visit to inform them of the circumstance of the visit and for follow-up with them and/or the need for any referrals to a consulting specialist. The emergency department will also refer you to a specialist when appropriate. This referral assures that you have the opportunity for follow-up care with a specialist. All of these measure are taken in an effort to provide you with opt imal care, which includes your follow-up. Under all circumstances we always encourage you to contact your private physician who remains a resource for coordinating your care. When calling for follow-up care, please make the office aware that this follow-up is from your recent emergency room visit. If for any reason you are refused follow-up, please contact the [facility] Emergency Department at and asked to speak to the emergency department charge nurse. If you do not have a primary care physician that is caring for you, you can contact these clinics below to set up an appointment to establish care: [facility] [address] [place] [id number] [address] [place] [address] Sepsis Event Note (ED) - Evaluation Sepsis Screening Result: No Definite Risk - Focused Exam Vital Signs: Vital Signs Temp Pulse Resp BP Pulse Ox 09/08/19 10:28 36.3 C 69 20 117/57 L 96 - My Orders Last 24 Hours: My Active Orders 09/08/19 10:53 Saline Lock Insert [OM.PC] Stat - Assessment/Plan Last 24 Hours: My Active Orders 09/08/19 10:53 Saline Lock Insert [OM.PC] Stat
[2019-09-08 12:09] LABS: BLOOD UREA NITROGEN,BUN 33 mg/dL (7.0-18.0); CARBON DIOXIDE,CO2 23.1 mmol/L (21.0-32.0); CHLORIDE,CL 107 mmol/L (98-107); GLUCOSE RANDOM 124 mg/dL (74-106); POTASSIUM,K 4.3 mmol/L (3.5-5.1); SODIUM,NA 140 mmol/L (136-148)
== END 2019-09-08 12:48 | disposition home or self-care (01) ==
LOC: MW.ED 10:22
DX: R53.83 Other fatigue (principal); E78.00 Pure hypercholesterolemia, unspecified; I10 Essential (primary) hypertension; M19.90 Unspecified osteoarthritis, unspecified site; Z79.82 Long term (current) use of aspirin; Z88.8 Allergy status to other drugs, medicaments and biological substances; Z88.0 Allergy status to penicillin; Z88.5 Allergy status to narcotic agent; Z91.09 Other allergy status, other than to drugs and biological substances; Z86.73 Personal history of transient ischemic attack (TIA), and cerebral infarction without residual deficits; Z87.891 Personal history of nicotine dependence
CPT/HCPCS: 36415; 80053; 84484; 85025; 85610; 93005; 99283-25

== ENCOUNTER 2021-10-19 08:05 | Day surgery (SDC) | payer MEDICARE, OTHER ==
[~2021-10-19 08:05] MED LIST: Lactated Ringers 1,000 ML IV SCH
[2021-10-19] MEDS ORDERED: Propofol 200 MG/20 ML SDV ONE (10:16)
[2021-10-19] MEDS ORDERED: Lactated Ringers 1,000 ML IV SCH (10:45)
[2021-10-19 11:04] VITALS: BP 147/75; PULSE 69
== END 2021-10-19 12:19 | disposition home or self-care (01) ==
LOC: MW.SDS 08:05
PROVIDERS: ATTEND Surgery
DX: K29.50 Unspecified chronic gastritis without bleeding (principal); I10 Essential (primary) hypertension; E78.00 Pure hypercholesterolemia, unspecified; K21.9 Gastro-esophageal reflux disease without esophagitis; N40.0 Benign prostatic hyperplasia without lower urinary tract symptoms; I25.10 Atherosclerotic heart disease of native coronary artery without angina pectoris; I25.2 Old myocardial infarction; Z87.891 Personal history of nicotine dependence; Z88.8 Allergy status to other drugs, medicaments and biological substances; Z88.0 Allergy status to penicillin; Z88.5 Allergy status to narcotic agent; Z79.82 Long term (current) use of aspirin; Z79.899 Other long term (current) drug therapy; Z98.890 Other specified postprocedural states; Z95.1 Presence of aortocoronary bypass graft
CPT/HCPCS: 43239; 88305; 88342; J2704; J7120; 00731; 99100